=== PATIENT | female | born 1980 | race Caucasian/White ===

== ENCOUNTER 2021-07-13 09:36 | Inpatient (IN) | payer MEDICAID, OTHER ==
[~2021-07-13] VITALS: Ht 160 cm; Wt 56.7 kg
[2021-07-13 10:30] LABS: Hemoglobin 10.8 g/dL (12.2-16.2)
[2021-07-13 10:32] LABS: Hematocrit 32.3 % (36.0-46.0); Mean Corpuscular Hgb Conc. 33.6 g/dL (32.0-36.0); Mean Corpuscular Volume 86.6 fL (80.0-100.0); Red Blood Cells 3.73 10^6/uL (4.0-5.20); Red Cell Distribution Width 17.9 % (11.8-14.3)
[2021-07-13] MEDS ORDERED: ALBUTEROL SULF 2.5 MG/0.5ML(0.5%) NEB SOLN NEB ONE (10:45)
[2021-07-13] MEDS ORDERED: methylPREDNISolone SOD SUCC 125 MG/2 ML VL IV ONE (10:45)
[2021-07-13] MEDS ORDERED: IPRATROPIUM BROM 0.5 MG/2.5ML INH SOL NEB ONE (10:45)
[2021-07-13 10:54] LABS: Albumin 2.4 g/dL (3.4-5.0); Calcium 8.2 mg/dL (8.5-10.1); Magnesium 1.9 mg/dL (1.6-2.6); Potassium 3.4 mmol/L (3.5-5.1)
[2021-07-13 10:55] LABS: INR 1.4 (0.9-1.15); Partial Thromboplastin Time 31.2 sec (23.6-33.0); White Blood Cell 0.2 10^3/uL (4.4-10.8)
[2021-07-13 10:57] LABS: BUN/Creatinine Ratio 14.6; Bilirubin, Total 0.6 mg/dL (0.2-1.0); Total Protein 6.2 g/dL (6.4-8.2)
[2021-07-13 10:58] LABS: Band Neutrophils % (manual) 0; Basophils % (manual) 0 (0.0-2.0); Blast Cells 0; Metamyelocytes % 0; Myelocytes % 0; Promyelocytes % 0; Reactive Lymphocytes 0
[2021-07-13 11:04] VITALS: BP 124/79
[2021-07-13] MEDS ORDERED: IOHEXOL 350 MG/ML 100ML IJ ONE ×2 (11:23→12:49)
[2021-07-13] MEDS: MAGNESIUM SULFATE 1GM/100ML 100 ML IV SCH ×2 (11:53→13:37)
[2021-07-13 12:20] LABS: Eosinophils % (manual) 5 (0-7); Lymphocytes % (manual) 83 (10.0-50.0); Monocytes % (manual) 5 (0-12)
[2021-07-13] MEDS ORDERED: HYDROmorphone HCL 2 MG/ML VL/or syr IV ONE (14:00)
[2021-07-13] MEDS ORDERED: ACETAMINOPHEN 325 MG TAB PO ONE (14:15)
[2021-07-13] MEDS ORDERED: CEFEPIME 1GM/ 50ML 50 ML IV ONE (14:15)
[2021-07-13] MEDS ORDERED: VANCOMYCIN 1GM/250ML 250 ML IV ONE (14:15)
[2021-07-13 15:44] VITALS: BP 124/79
[2021-07-13] MEDS ORDERED: NITROGLYCERIN 0.4 MG SL TAB SL PRN (18:00)
[2021-07-13] MEDS ORDERED: MORPHINE SULFATE INJ 2 MG/ml SYRG IV PRN ×2 (18:00)
[2021-07-13] MEDS ORDERED: ONDANSETRON HCL 4 MG/2 ML VIAL IV PRN (18:00)
[2021-07-13 18:56] VITALS: BP 120/83
[2021-07-13] MEDS: levoFLOXacin 500MG 100 ML IV SCH ×2 (19:01→22:02)
[2021-07-13] MEDS ORDERED: AMINO ACID INFUSION IN D10W 1,000 ML IV NR (20:00)
[2021-07-13] MEDS ORDERED: TPN PER PHARMACY 0 ML IV SCH (20:00)
[2021-07-13] MEDS: POTASSIUM CHL 20MEQ/100ML 100 ML IV SCH ×2 (22:00→23:50)
[2021-07-13] MEDS ORDERED: HYDROmorphone HCL 2 MG/ML VL/or syr IV PRN (23:00)
[2021-07-13] MEDS: methylPREDNISolone SOD SUCC 125 MG/2 ML VL IV SCH (23:39)
[2021-07-14] VITALS (47 sets, daily range): BP systolic 96–131; BP diastolic 58–87
[2021-07-14] MEDS ORDERED: DEXTROSE (50%) 50ML SYRG IV SCH
[2021-07-14] MEDS: HYDROmorphone HCL 2 MG/ML VL/or syr IV PRN ×3 (00:40→13:00)
[2021-07-14] MEDS ORDERED: POTASSIUM CHL 20MEQ/100ML 100 ML IV ONE (04:13)
[2021-07-14 04:36] LABS: Basophils # (auto) 0 10 ^3/uL (0-0.2); Eosinophils # (auto) 0 10 ^3/uL (0-0.8); Hematocrit 27.3 % (36.0-46.0); Lymphocytes # (auto) 0.1 10 ^3/uL (0.4-5.4); Monocytes # (auto) 0 10 ^3/uL (0-1.3); Neutrophils # (auto) 0 10 ^3/uL (1.6-8.6); Red Blood Cells 3.16 10^6/uL (4.0-5.20)
[2021-07-14 04:38] LABS: Eosinophils % (auto) 1.7 % (0.0-7.0); Hemoglobin 9.5 g/dL (12.2-16.2); Mean Corpuscular Hemoglobin 30.2 pg (28.0-32.0); Mean Corpuscular Hgb Conc. 34.9 g/dL (32.0-36.0); Mean Corpuscular Volume 86.4 fL (80.0-100.0); Neutrophils % (auto) 11.1 % (37.0-80.0); Red Cell Distribution Width 17.5 % (11.8-14.3)
[2021-07-14 04:52] LABS: Albumin 1.9 g/dL (3.4-5.0); Calcium 7.9 mg/dL (8.5-10.1); Magnesium 2.2 mg/dL (1.6-2.6); Potassium 3.7 mmol/L (3.5-5.1)
[2021-07-14 04:58] LABS: BUN/Creatinine Ratio 18.6; Bilirubin, Total 0.5 mg/dL (0.2-1.0); Phosphorus 2.5 mg/dL (2.5-4.90); Total Protein 5.6 g/dL (6.4-8.2)
[2021-07-14] MEDS: ACETAMINOPHEN 325 MG TAB PO PRN ×2 (05:07→22:10)
[2021-07-14 05:18] LABS: Lymphocytes % (auto) 65.5 % (10.0-50.0); Monocytes % (auto) 21.7 % (0.0-12.0); Nucleated Red Blood Cells % 9.1 %
[2021-07-14 05:19] LABS: White Blood Cell 0.1 10^3/uL (4.4-10.8)
[2021-07-14] MEDS: InsuLIN REG 1unit/0.01ml Soln (100units/ml) SC SCH ×3 (06:00→13:50)
[2021-07-14] MEDS: methylPREDNISolone SOD SUCC 125 MG/2 ML VL IV SCH ×3 (06:06→22:07)
[2021-07-14] MEDS: ACCU-CHEK COMFORT CURVE STRIP VI SCH ×3 (06:07→13:50)
[2021-07-14] MEDS ORDERED: HYDROmorphone HCL 2 MG/ML VL/or syr IV PRN (15:30)
[2021-07-14] MEDS ORDERED: LIDOCAINE 5% TOPICAL PATCH TOP ONE (16:45)
[2021-07-14] MEDS: LORazepam 2MG/ML-1ML VIAL IV PRN (16:51)
[2021-07-14] MEDS: IPRATROPIUM BROM 0.5 MG/2.5ML INH SOL NEB PRN (18:13)
[2021-07-14] MEDS ORDERED: ROCURONIUM 10MG/ML 10ML VIAL IV ONE ×2 (18:36→22:37)
[2021-07-14] MEDS ORDERED: ETOMIDATE (2MG/ML) 20ML VIAL IV ONE ×2 (18:36→22:37)
[2021-07-14] MEDS ORDERED: SUCCINYLCHOLINE CHLORIDE 20 MG/ML 10ML VIAL IV ONE ×2 (18:37→22:37)
[2021-07-14] MEDS ORDERED: PPN PER PHARMACY IV NR ×11 (20:00)
[2021-07-14] MEDS: NYSTATIN (MOUTH-THROAT) 500,000 UNITS/5 ML SUSP MT SCH (22:06)
[2021-07-14] MEDS: GABAPENTIN 300 MG CAP PO SCH (22:08)
[2021-07-14] MEDS: METOPROLOL TARTRATE 25 MG TAB PO SCH (22:08)
[2021-07-14] MEDS: PROPOFOL 100 ML IV SCH (23:15)
[2021-07-14] MEDS ORDERED: PROPOFOL 100 ML IV ONE (23:19)
[2021-07-14] MEDS: MIDAZOLAM DRIP 50 mg/50mL 50 ML IV SCH (23:45)
[2021-07-15] VITALS (77 sets, daily range): BP systolic 77–127; BP diastolic 43–87
[2021-07-15] MEDS: fentaNYL Drip 2500mCg/250mlNS 250 ML IV SCH ×2 (03:10→14:35)
[2021-07-15 04:04] LABS: Calcium 8.2 mg/dL (8.5-10.1); Magnesium 2.2 mg/dL (1.6-2.6); Potassium 3.8 mmol/L (3.5-5.1)
[2021-07-15 04:11] LABS: Albumin 1.6 g/dL (3.4-5.0); BUN/Creatinine Ratio 26.8; Bilirubin, Total 0.5 mg/dL (0.2-1.0); Phosphorus 2.5 mg/dL (2.5-4.90); Total Protein 5.7 g/dL (6.4-8.2)
[2021-07-15] MEDS: ACCU-CHEK COMFORT CURVE STRIP VI SCH ×4 (06:00→17:17)
[2021-07-15] MEDS: NYSTATIN (MOUTH-THROAT) 500,000 UNITS/5 ML SUSP MT SCH ×4 (06:37→22:19)
[2021-07-15] MEDS: methylPREDNISolone SOD SUCC 125 MG/2 ML VL IV SCH ×3 (06:37→22:19)
[2021-07-15] MEDS: InsuLIN REG 1unit/0.01ml Soln (100units/ml) SC SCH ×4 (06:51→17:16)
[2021-07-15] MEDS: ACETAMINOPHEN 325 MG TAB PO PRN (07:40)
[2021-07-15] MEDS ORDERED: VANCOMYCIN PER PHARMACY 0 MG IV SCH (08:00)
[2021-07-15] MEDS ORDERED: MEROPENEM 500MG IVPB 50 ML IV SCH (08:00)
[2021-07-15] MEDS: MEROPENEM 1GM IVPB 100 ML IV SCH ×2 (08:14→15:59)
[2021-07-15] MEDS: VANCOMYCIN 1GM/250ML 250 ML IV SCH ×2 (09:28→22:19)
[2021-07-15] MEDS: GABAPENTIN 300 MG CAP PO SCH ×2 (09:29→22:21)
[2021-07-15] MEDS: NOREPINEPHRINE 8 MG/250ML KIT 250 ML IV SCH (09:29)
[2021-07-15] MEDS: LIDOCAINE 5% TOPICAL PATCH TOP SCH (09:30)
[2021-07-15] MEDS: METOPROLOL TARTRATE 25 MG TAB PO SCH ×2 (09:32→22:20)
[2021-07-15] MEDS: levoFLOXacin 500MG 100 ML IV SCH (10:43)
[2021-07-15 10:55] LABS: Lymphocytes # (auto) 0.1 10 ^3/uL (0.4-5.4); Lymphocytes % (auto) 50.5 % (10.0-50.0); Monocytes # (auto) 0 10 ^3/uL (0-1.3); Neutrophils # (auto) 0.1 10 ^3/uL (1.6-8.6); Neutrophils % (auto) 46.5 % (37.0-80.0); Nucleated Red Blood Cells % 1.6 %
[2021-07-15 10:57] LABS: Hemoglobin 7.9 g/dL (12.2-16.2); Red Blood Cells 2.66 10^6/uL (4.0-5.20); White Blood Cell 0.2 10^3/uL (4.4-10.8)
[2021-07-15 10:58] LABS: Hematocrit 23.3 % (36.0-46.0); Mean Corpuscular Hemoglobin 29.5 pg (28.0-32.0); Mean Corpuscular Hgb Conc. 33.8 g/dL (32.0-36.0); Mean Corpuscular Volume 87.4 fL (80.0-100.0); Red Cell Distribution Width 17.7 % (11.8-14.3)
[2021-07-15 11:32] LABS: % Iron Saturation 19.4 % (15-50)
[2021-07-15 11:41] LABS: Ferritin 1445.8 ng/mL (10-322)
[2021-07-15] MEDS: PROPOFOL 100 ML IV SCH ×2 (12:30→18:23)
[2021-07-15] MEDS ORDERED: TPN PER PHARMACY IV NR ×11 (20:00)
[2021-07-16] VITALS (104 sets, daily range): BP systolic 88–134; BP diastolic 55–92
[2021-07-16] MEDS: PROPOFOL 100 ML IV SCH ×4 (00:52→18:25)
[2021-07-16] MEDS: MEROPENEM 1GM IVPB 100 ML IV SCH ×3 (00:52→16:45)
[2021-07-16] MEDS: NOREPINEPHRINE 8 MG/250ML KIT 250 ML IV SCH (00:52)
[2021-07-16] MEDS: ACCU-CHEK COMFORT CURVE STRIP VI SCH ×4 (00:53→17:16)
[2021-07-16] MEDS: InsuLIN REG 1unit/0.01ml Soln (100units/ml) SC SCH ×4 (00:56→17:21)
[2021-07-16] MEDS: fentaNYL Drip 2500mCg/250mlNS 250 ML IV SCH ×2 (02:30→16:41)
[2021-07-16 04:02] LABS: Urine Bacteria NONE SEEN /hpf (None Seen); Urine Blood Negative /uL (Negative); Urine WBC 3 /hpf (0 - 5)
[2021-07-16 04:04] LABS: Basophils # (auto) 0 10 ^3/uL (0-0.2); Eosinophils # (auto) 0 10 ^3/uL (0-0.8); Hemoglobin 8.2 g/dL (12.2-16.2); Lymphocytes # (auto) 0.2 10 ^3/uL (0.4-5.4); Monocytes # (auto) 0 10 ^3/uL (0-1.3); Neutrophils # (auto) 0.3 10 ^3/uL (1.6-8.6)
[2021-07-16 04:08] LABS: Basophils % (auto) 0.4 % (0.0-2.0); Eosinophils % (auto) 0.5 % (0.0-7.0); Hematocrit 24.1 % (36.0-46.0); Lymphocytes % (auto) 36.2 % (10.0-50.0); Mean Corpuscular Hemoglobin 30.1 pg (28.0-32.0); Mean Corpuscular Hgb Conc. 34.2 g/dL (32.0-36.0); Mean Corpuscular Volume 87.9 fL (80.0-100.0); Monocytes % (auto) 6.1 % (0.0-12.0); Neutrophils % (auto) 56.8 % (37.0-80.0); Red Blood Cells 2.74 10^6/uL (4.0-5.20)
[2021-07-16 04:44] LABS: Albumin 1.3 g/dL (3.4-5.0); Calcium 9.5 mg/dL (8.5-10.1); Magnesium 2.4 mg/dL (1.6-2.6); Potassium 3.3 mmol/L (3.5-5.1)
[2021-07-16 04:46] LABS: BUN/Creatinine Ratio 34.8
[2021-07-16 04:48] LABS: Bilirubin, Total 0.4 mg/dL (0.2-1.0); Phosphorus 2.4 mg/dL (2.5-4.90); Total Protein 5.3 g/dL (6.4-8.2)
[2021-07-16 04:54] LABS: Nucleated Red Blood Cells % 16.2 %; White Blood Cell 0.5 10^3/uL (4.4-10.8)
[2021-07-16] MEDS: methylPREDNISolone SOD SUCC 125 MG/2 ML VL IV SCH ×2 (06:03→14:07)
[2021-07-16] MEDS: NYSTATIN (MOUTH-THROAT) 500,000 UNITS/5 ML SUSP MT SCH ×3 (06:03→17:15)
[2021-07-16] MEDS: LIDOCAINE 5% TOPICAL PATCH TOP SCH (10:00)
[2021-07-16] MEDS ORDERED: PANTOPRAZOLE 40 MG/10 ML VIAL INJ IV SCH (10:00)
[2021-07-16] MEDS ORDERED: POTASSIUM PHOSPHATE 44 MEQ in D5W 5% 250 ML IV ONE (10:00)
[2021-07-16] MEDS: METOPROLOL TARTRATE 25 MG TAB PO SCH ×2 (10:00→22:00)
[2021-07-16 10:21] LABS: Folate (Folic Acid) 15.72 ng/mL (5.38-24)
[2021-07-16] MEDS: GABAPENTIN 300 MG CAP PO SCH (10:33)
[2021-07-16] MEDS: VANCOMYCIN 1GM/250ML 250 ML IV SCH (10:36)
[2021-07-16] MEDS: MIDAZOLAM DRIP 50 mg/50mL 50 ML IV SCH (10:55)
[2021-07-16] MEDS: FILGRASTIM(TBO) 480 MCG/0.8 ML SYRG SC SCH (11:28)
[2021-07-16] MEDS: ACETAMINOPHEN 325 MG TAB PO PRN (14:09)
[2021-07-16] MEDS ORDERED: SODIUM PHOSPHATES IV NR ×12 (20:00)
[2021-07-16] MEDS ORDERED: POTASSIUM CHLORIDE IV NR ×12 (20:00)
[2021-07-16] MEDS ORDERED: [UNRECOGNIZED DRUG - OTHER] IV NR ×12 (20:00)
[2021-07-16] MEDS ORDERED: SODIUM CHLORIDE IV NR ×12 (20:00)
[2021-07-17] VITALS (100 sets, daily range): BP systolic 87–120; BP diastolic 51–74
[2021-07-17] MEDS: NYSTATIN (MOUTH-THROAT) 500,000 UNITS/5 ML SUSP MT SCH ×5 (00:10→22:00)
[2021-07-17] MEDS: MEROPENEM 1GM IVPB 100 ML IV SCH ×3 (00:10→17:44)
[2021-07-17] MEDS: methylPREDNISolone SOD SUCC 125 MG/2 ML VL IV SCH ×4 (00:11→22:08)
[2021-07-17] MEDS: GABAPENTIN 300 MG CAP PO SCH ×3 (00:11→22:09)
[2021-07-17] MEDS: ACCU-CHEK COMFORT CURVE STRIP VI SCH ×4 (00:12→17:53)
[2021-07-17] MEDS: InsuLIN REG 1unit/0.01ml Soln (100units/ml) SC SCH ×4 (00:27→17:53)
[2021-07-17 04:32] LABS: Basophils # (auto) 0 10 ^3/uL (0-0.2); Eosinophils # (auto) 0 10 ^3/uL (0-0.8); Monocytes # (auto) 0 10 ^3/uL (0-1.3)
[2021-07-17 04:47] LABS: Albumin 1.1 g/dL (3.4-5.0); Calcium 9.1 mg/dL (8.5-10.1); Magnesium 2.4 mg/dL (1.6-2.6); Potassium 3.8 mmol/L (3.5-5.1)
[2021-07-17 04:52] LABS: BUN/Creatinine Ratio 67.9; Bilirubin, Total 0.3 mg/dL (0.2-1.0); Phosphorus 5.2 mg/dL (2.5-4.90)
[2021-07-17 04:56] LABS: Basophils % (auto) 0.2 % (0.0-2.0); Eosinophils % (auto) 0.1 % (0.0-7.0); Hematocrit 21.1 % (36.0-46.0); Hemoglobin 7.5 g/dL (12.2-16.2); Lymphocytes # (auto) 0.3 10 ^3/uL (0.4-5.4); Lymphocytes % (auto) 28.6 % (10.0-50.0); Mean Corpuscular Hemoglobin 30.7 pg (28.0-32.0); Mean Corpuscular Hgb Conc. 35.6 g/dL (32.0-36.0); Mean Corpuscular Volume 86.2 fL (80.0-100.0); Monocytes % (auto) 1.6 % (0.0-12.0); Neutrophils # (auto) 0.7 10 ^3/uL (1.6-8.6); Neutrophils % (auto) 69.5 % (37.0-80.0); Red Blood Cells 2.45 10^6/uL (4.0-5.20); Red Cell Distribution Width 18.9 % (11.8-14.3)
[2021-07-17 06:25] LABS: Nucleated Red Blood Cells % 4.6 %
[2021-07-17 06:30] LABS: White Blood Cell 0.9 10^3/uL (4.4-10.8)
[2021-07-17] MEDS: PANTOPRAZOLE 40 MG/10 ML VIAL INJ IV SCH ×2 (09:58→22:08)
[2021-07-17] MEDS: METOPROLOL TARTRATE 25 MG TAB PO SCH ×2 (10:00→22:00)
[2021-07-17] MEDS ORDERED: MICAFUNGIN SODIUM 100 MG in SODIUM CHL 0.9% 100 ML IV SCH (10:00)
[2021-07-17] MEDS: FILGRASTIM(TBO) 480 MCG/0.8 ML SYRG SC SCH (10:20)
[2021-07-17 11:32] LABS: Hemoglobin 7.4 g/dL (12.2-16.2); Red Blood Cells 2.48 10^6/uL (4.0-5.20); Red Cell Distribution Width 19.1 % (11.8-14.3)
[2021-07-17 11:34] LABS: Hematocrit 21.5 % (36.0-46.0); Mean Corpuscular Hemoglobin 29.9 pg (28.0-32.0); Mean Corpuscular Hgb Conc. 34.5 g/dL (32.0-36.0); Mean Corpuscular Volume 86.6 fL (80.0-100.0)
[2021-07-17] MEDS: PROPOFOL 100 ML IV SCH ×2 (11:44→18:44)
[2021-07-17 11:46] LABS: INR 1.02 (0.9-1.15)
[2021-07-17 12:12] LABS: Basophils % (manual) 0 (0.0-2.0); Blast Cells 0; Eosinophils % (manual) 0 (0-7); Promyelocytes % 0; Reactive Lymphocytes 0; White Blood Cell 1.2 10^3/uL (4.4-10.8)
[2021-07-17 12:32] LABS: Band Neutrophils % (manual) 23; Lymphocytes % (manual) 43 (10.0-50.0); Metamyelocytes % 7; Monocytes % (manual) 5 (0-12); Myelocytes % 12
[2021-07-17] MEDS ORDERED: MAGIC MOUTHWASH 55 ML SUSP MT ONE (12:45)
[2021-07-17] MEDS: fentaNYL Drip 2500mCg/250mlNS 250 ML IV SCH (17:01)
[2021-07-17] MEDS: NOREPINEPHRINE 8 MG/250ML KIT 250 ML IV SCH (19:00)
[2021-07-17] MEDS ORDERED: TPN PER PHARMACY IV NR ×9 (20:00)
[2021-07-17] MEDS: MIDAZOLAM DRIP 50 mg/50mL 50 ML IV SCH (23:45)
[2021-07-18] VITALS (101 sets, daily range): BP systolic 103–175; BP diastolic 53–118
[2021-07-18] MEDS: ACCU-CHEK COMFORT CURVE STRIP VI SCH ×5 (01:18→23:50)
[2021-07-18] MEDS: InsuLIN REG 1unit/0.01ml Soln (100units/ml) SC SCH ×5 (01:24→23:44)
[2021-07-18] MEDS: MEROPENEM 1GM IVPB 100 ML IV SCH ×3 (01:25→16:34)
[2021-07-18] MEDS: NYSTATIN (MOUTH-THROAT) 500,000 UNITS/5 ML SUSP MT SCH ×4 (06:00→22:01)
[2021-07-18] MEDS: methylPREDNISolone SOD SUCC 125 MG/2 ML VL IV SCH ×3 (06:24→22:01)
[2021-07-18 06:31] LABS: Hematocrit 21.2 % (36.0-46.0); Hemoglobin 7.3 g/dL (12.2-16.2); Mean Corpuscular Hgb Conc. 34.6 g/dL (32.0-36.0); Mean Corpuscular Volume 86.8 fL (80.0-100.0); Red Blood Cells 2.44 10^6/uL (4.0-5.20); Red Cell Distribution Width 18.9 % (11.8-14.3); White Blood Cell 3.8 10^3/uL (4.4-10.8)
[2021-07-18 06:50] LABS: Potassium 4.2 mmol/L (3.5-5.1)
[2021-07-18 06:54] LABS: Basophils % (manual) 0 (0.0-2.0); Blast Cells 0; Eosinophils % (manual) 0 (0-7); Myelocytes % 0; Promyelocytes % 0; Reactive Lymphocytes 0
[2021-07-18 06:59] LABS: Albumin 1.1 g/dL (3.4-5.0); BUN/Creatinine Ratio 80.4; Bilirubin, Total 0.3 mg/dL (0.2-1.0); Calcium 9.7 mg/dL (8.5-10.1); Magnesium 2.5 mg/dL (1.6-2.6); Phosphorus 3.8 mg/dL (2.5-4.90); Total Protein 4.9 g/dL (6.4-8.2)
[2021-07-18] MEDS: NOREPINEPHRINE 8 MG/250ML KIT 250 ML IV SCH (09:15)
[2021-07-18 09:57] LABS: Band Neutrophils % (manual) 8; Lymphocytes % (manual) 27 (10.0-50.0); Metamyelocytes % 9; Monocytes % (manual) 17 (0-12)
[2021-07-18] MEDS: PANTOPRAZOLE 40 MG/10 ML VIAL INJ IV SCH ×2 (09:59→22:01)
[2021-07-18] MEDS ORDERED: FILGRASTIM (TBO) 300 MCG/0.5 ML SYRG SC SCH (10:00)
[2021-07-18] MEDS: GABAPENTIN 300 MG CAP PO SCH ×2 (10:00→22:01)
[2021-07-18] MEDS: METOPROLOL TARTRATE 25 MG TAB PO SCH ×2 (10:00→22:00)
[2021-07-18] MEDS: PROPOFOL 100 ML IV SCH ×2 (15:24→21:17)
[2021-07-18] MEDS: fentaNYL Drip 2500mCg/250mlNS 250 ML IV SCH (18:33)
[2021-07-18] MEDS ORDERED: TPN PER PHARMACY IV NR ×18 (20:00)
[2021-07-19] VITALS (105 sets, daily range): BP systolic 104–186; BP diastolic 52–119
[2021-07-19] MEDS: MEROPENEM 1GM IVPB 100 ML IV SCH ×2 (01:02→08:53)
[2021-07-19] MEDS: PROPOFOL 100 ML IV SCH (03:43)
[2021-07-19 04:52] LABS: Hematocrit 23.5 % (36.0-46.0); Mean Corpuscular Hemoglobin 30.1 pg (28.0-32.0)
[2021-07-19 04:59] LABS: Mean Corpuscular Hgb Conc. 34.3 g/dL (32.0-36.0); Mean Corpuscular Volume 87.8 fL (80.0-100.0); Red Blood Cells 2.68 10^6/uL (4.0-5.20); Red Cell Distribution Width 19.7 % (11.8-14.3); White Blood Cell 10.3 10^3/uL (4.4-10.8)
[2021-07-19 05:02] LABS: Basophils % (manual) 0 (0.0-2.0); Blast Cells 0; Eosinophils % (manual) 0 (0-7); Promyelocytes % 0; Reactive Lymphocytes 0
[2021-07-19 05:03] LABS: Albumin 1.2 g/dL (3.4-5.0); Calcium 10.5 mg/dL (8.5-10.1); Magnesium 2.2 mg/dL (1.6-2.6); Potassium 4.7 mmol/L (3.5-5.1)
[2021-07-19 05:05] LABS: Bilirubin, Total 0.4 mg/dL (0.2-1.0); Phosphorus 3.8 mg/dL (2.5-4.90)
[2021-07-19] MEDS: methylPREDNISolone SOD SUCC 125 MG/2 ML VL IV SCH ×3 (05:58→22:12)
[2021-07-19] MEDS: NYSTATIN (MOUTH-THROAT) 500,000 UNITS/5 ML SUSP MT SCH ×4 (06:00→22:13)
[2021-07-19] MEDS: InsuLIN REG 1unit/0.01ml Soln (100units/ml) SC SCH ×4 (06:28→23:46)
[2021-07-19] MEDS: ACCU-CHEK COMFORT CURVE STRIP VI SCH ×4 (06:29→23:45)
[2021-07-19 07:11] LABS: Band Neutrophils % (manual) 67; Lymphocytes % (manual) 7 (10.0-50.0); Metamyelocytes % 10; Monocytes % (manual) 4 (0-12); Myelocytes % 3
[2021-07-19] MEDS: GABAPENTIN 300 MG CAP PO SCH ×2 (10:00→22:12)
[2021-07-19] MEDS: PANTOPRAZOLE 40 MG/10 ML VIAL INJ IV SCH ×2 (10:00→22:12)
[2021-07-19] MEDS: METOPROLOL TARTRATE 25 MG TAB PO SCH ×2 (10:00→22:13)
[2021-07-19] MEDS: FUROSEMIDE 40 MG/4 ML VIAL IV SCH (10:01)
[2021-07-19] MEDS: MIDAZOLAM DRIP 50 mg/50mL 50 ML IV SCH (19:00)
[2021-07-19] MEDS: fentaNYL Drip 2500mCg/250mlNS 250 ML IV SCH (19:30)
[2021-07-19] MEDS: TPN PER PHARMACY IV NR ×9 (20:15)
[2021-07-20] VITALS (99 sets, daily range): BP systolic 87–129; BP diastolic 40–63
[2021-07-20] MEDS: PROPOFOL 100 ML IV SCH ×3 (02:35→19:43)
[2021-07-20 04:33] LABS: Hemoglobin 8.6 g/dL (12.2-16.2)
[2021-07-20 04:37] LABS: Hematocrit 24.9 % (36.0-46.0); Mean Corpuscular Hemoglobin 30.2 pg (28.0-32.0); Mean Corpuscular Hgb Conc. 34.5 g/dL (32.0-36.0); Mean Corpuscular Volume 87.5 fL (80.0-100.0); Red Blood Cells 2.84 10^6/uL (4.0-5.20); Red Cell Distribution Width 19.5 % (11.8-14.3); White Blood Cell 20.6 10^3/uL (4.4-10.8)
[2021-07-20 04:46] LABS: Basophils % (manual) 0 (0.0-2.0); Blast Cells 0; Eosinophils % (manual) 0 (0-7); Myelocytes % 0; Promyelocytes % 0; Reactive Lymphocytes 0
[2021-07-20 04:48] LABS: Albumin 1.2 g/dL (3.4-5.0); Calcium 9.9 mg/dL (8.5-10.1); Magnesium 2.7 mg/dL (1.6-2.6); Potassium 4.2 mmol/L (3.5-5.1)
[2021-07-20 04:52] LABS: BUN/Creatinine Ratio 121.4; Bilirubin, Total 0.5 mg/dL (0.2-1.0); Total Protein 4.9 g/dL (6.4-8.2)
[2021-07-20] MEDS: ACCU-CHEK COMFORT CURVE STRIP VI SCH ×3 (06:23→18:00)
[2021-07-20] MEDS: InsuLIN REG 1unit/0.01ml Soln (100units/ml) SC SCH ×3 (06:26→18:42)
[2021-07-20] MEDS: NYSTATIN (MOUTH-THROAT) 500,000 UNITS/5 ML SUSP MT SCH ×3 (06:26→18:48)
[2021-07-20] MEDS: methylPREDNISolone SOD SUCC 125 MG/2 ML VL IV SCH ×3 (06:26→21:54)
[2021-07-20 08:01] LABS: Band Neutrophils % (manual) 53; Lymphocytes % (manual) 3 (10.0-50.0); Metamyelocytes % 14; Monocytes % (manual) 5 (0-12)
[2021-07-20] MEDS: PANTOPRAZOLE 40 MG/10 ML VIAL INJ IV SCH ×2 (09:49→21:54)
[2021-07-20] MEDS: GABAPENTIN 300 MG CAP PO SCH ×2 (09:50→21:55)
[2021-07-20] MEDS: METOPROLOL TARTRATE 25 MG TAB PO SCH ×2 (09:50→21:55)
[2021-07-20] MEDS: FUROSEMIDE 40 MG/4 ML VIAL IV SCH (09:50)
[2021-07-20 10:23] LABS: Hemoglobin 8.3 g/dL (12.2-16.2)
[2021-07-20 10:25] LABS: Hematocrit 24.5 % (36.0-46.0)
[2021-07-20] MEDS: fentaNYL Drip 2500mCg/250mlNS 250 ML IV SCH (11:34)
[2021-07-20] MEDS: TPN PER PHARMACY IV NR ×9 (19:56)
[2021-07-20] MEDS ORDERED: TPN PER PHARMACY IV NR ×9 (20:00)
[2021-07-21] VITALS (104 sets, daily range): BP systolic 75–147; BP diastolic 34–82
[2021-07-21] MEDS: InsuLIN REG 1unit/0.01ml Soln (100units/ml) SC SCH ×4 (00:25→17:48)
[2021-07-21] MEDS: NYSTATIN (MOUTH-THROAT) 500,000 UNITS/5 ML SUSP MT SCH ×5 (00:25→21:07)
[2021-07-21] MEDS: ACCU-CHEK COMFORT CURVE STRIP VI SCH ×4 (00:28→17:47)
[2021-07-21 05:13] LABS: Albumin 1.2 g/dL (3.4-5.0); BUN/Creatinine Ratio 115.6; Bilirubin, Total 0.6 mg/dL (0.2-1.0); Calcium 9.4 mg/dL (8.5-10.1); Magnesium 2.4 mg/dL (1.6-2.6); Phosphorus 4.3 mg/dL (2.5-4.90); Total Protein 4.8 g/dL (6.4-8.2)
[2021-07-21 05:17] LABS: Potassium 4.9 mmol/L (3.5-5.1)
[2021-07-21 05:55] LABS: Hematocrit 28.6 % (36.0-46.0); Hemoglobin 9.6 g/dL (12.2-16.2); Mean Corpuscular Hemoglobin 29.5 pg (28.0-32.0); Mean Corpuscular Hgb Conc. 33.6 g/dL (32.0-36.0); Mean Corpuscular Volume 87.8 fL (80.0-100.0); Red Blood Cells 3.26 10^6/uL (4.0-5.20); White Blood Cell 28.7 10^3/uL (4.4-10.8)
[2021-07-21] MEDS: methylPREDNISolone SOD SUCC 125 MG/2 ML VL IV SCH ×3 (06:20→21:08)
[2021-07-21 07:13] LABS: Band Neutrophils % (manual) 69; Basophils % (manual) 0 (0.0-2.0); Blast Cells 0; Eosinophils % (manual) 0 (0-7); Lymphocytes % (manual) 3 (10.0-50.0); Metamyelocytes % 15; Monocytes % (manual) 4 (0-12); Myelocytes % 2; Promyelocytes % 0; Reactive Lymphocytes 0
[2021-07-21] MEDS: FUROSEMIDE 40 MG/4 ML VIAL IV SCH (09:40)
[2021-07-21] MEDS: PANTOPRAZOLE 40 MG/10 ML VIAL INJ IV SCH ×2 (09:40→21:07)
[2021-07-21] MEDS: GABAPENTIN 300 MG CAP PO SCH ×2 (09:41→21:08)
[2021-07-21] MEDS: METOPROLOL TARTRATE 25 MG TAB PO SCH ×2 (09:41→21:15)
[2021-07-21] MEDS: MIDAZOLAM DRIP 50 mg/50mL 50 ML IV SCH (11:20)
[2021-07-21] MEDS: ACETAMINOPHEN 325 MG TAB PO PRN (13:46)
[2021-07-21] MEDS: NOREPINEPHRINE 8 MG/250ML KIT 250 ML IV SCH (14:58)
[2021-07-21] MEDS: fentaNYL Drip 2500mCg/250mlNS 250 ML IV SCH (18:19)
[2021-07-21] MEDS ORDERED: TPN PER PHARMACY IV NR ×8 (20:00)
[2021-07-22] VITALS (97 sets, daily range): BP systolic 80–138; BP diastolic 38–81
[2021-07-22] MEDS: ACCU-CHEK COMFORT CURVE STRIP VI SCH ×5 (00:10→23:41)
[2021-07-22] MEDS: InsuLIN REG 1unit/0.01ml Soln (100units/ml) SC SCH ×5 (00:12→23:46)
[2021-07-22 04:53] LABS: Albumin 1.4 g/dL (3.4-5.0); Calcium 9.2 mg/dL (8.5-10.1); Magnesium 2.4 mg/dL (1.6-2.6)
[2021-07-22 04:55] LABS: BUN/Creatinine Ratio 113.2
[2021-07-22 04:58] LABS: Bilirubin, Total 0.4 mg/dL (0.2-1.0); Phosphorus 2.8 mg/dL (2.5-4.90)
[2021-07-22] MEDS: NYSTATIN (MOUTH-THROAT) 500,000 UNITS/5 ML SUSP MT SCH ×4 (05:49→22:12)
[2021-07-22] MEDS: methylPREDNISolone SOD SUCC 125 MG/2 ML VL IV SCH ×3 (05:50→22:10)
[2021-07-22] MEDS: IPRATROPIUM BROM 0.5 MG/2.5ML INH SOL NEB PRN (08:11)
[2021-07-22] MEDS: PANTOPRAZOLE 40 MG/10 ML VIAL INJ IV SCH ×2 (09:47→22:09)
[2021-07-22] MEDS: GABAPENTIN 300 MG CAP PO SCH ×2 (09:48→22:12)
[2021-07-22] MEDS: FUROSEMIDE 40 MG/4 ML VIAL IV SCH (09:48)
[2021-07-22] MEDS: fentaNYL Drip 2500mCg/250mlNS 250 ML IV SCH ×2 (09:50→23:48)
[2021-07-22] MEDS: METOPROLOL TARTRATE 25 MG TAB PO SCH ×2 (10:00→22:00)
[2021-07-22 10:18] LABS: Hematocrit 30.2 % (36.0-46.0); Hemoglobin 10.1 g/dL (12.2-16.2); Mean Corpuscular Hemoglobin 29.4 pg (28.0-32.0); Mean Corpuscular Hgb Conc. 33.3 g/dL (32.0-36.0); Mean Corpuscular Volume 88.4 fL (80.0-100.0); Red Blood Cells 3.42 10^6/uL (4.0-5.20); Red Cell Distribution Width 20.2 % (11.8-14.3); White Blood Cell 23.6 10^3/uL (4.4-10.8)
[2021-07-22 10:23] LABS: Basophils % (manual) 0 (0.0-2.0); Blast Cells 0; Eosinophils % (manual) 0 (0-7); Promyelocytes % 0; Reactive Lymphocytes 0
[2021-07-22 10:52] LABS: Band Neutrophils % (manual) 62; Lymphocytes % (manual) 6 (10.0-50.0); Metamyelocytes % 14; Monocytes % (manual) 3 (0-12); Myelocytes % 1
[2021-07-22] MEDS ORDERED: TPN PER PHARMACY IV NR ×10 (20:00)
[2021-07-22] MEDS: ACETAMINOPHEN 325 MG TAB PO PRN (22:32)
[2021-07-22] MEDS: PROPOFOL 100 ML IV SCH (23:15)
[2021-07-22] MEDS: MIDAZOLAM DRIP 50 mg/50mL 50 ML IV SCH (23:45)
[2021-07-23] VITALS (90 sets, daily range): BP systolic 87–150; BP diastolic 40–105
[2021-07-23 04:30] LABS: Red Cell Distribution Width 19.5 % (11.8-14.3)
[2021-07-23 04:32] LABS: Hematocrit 25.6 % (36.0-46.0); Mean Corpuscular Hemoglobin 30.5 pg (28.0-32.0); Mean Corpuscular Volume 87.2 fL (80.0-100.0); Red Blood Cells 2.94 10^6/uL (4.0-5.20); White Blood Cell 13.5 10^3/uL (4.4-10.8)
[2021-07-23 04:40] LABS: Basophils % (manual) 0 (0.0-2.0); Blast Cells 0; Eosinophils % (manual) 0 (0-7); Promyelocytes % 0; Reactive Lymphocytes 0
[2021-07-23 04:47] LABS: Albumin 1.2 g/dL (3.4-5.0); Magnesium 2.5 mg/dL (1.6-2.6); Potassium 4.1 mmol/L (3.5-5.1)
[2021-07-23 04:52] LABS: BUN/Creatinine Ratio 97.7; Bilirubin, Total 0.6 mg/dL (0.2-1.0); Phosphorus 3.4 mg/dL (2.5-4.90); Total Protein 4.1 g/dL (6.4-8.2)
[2021-07-23] MEDS: methylPREDNISolone SOD SUCC 125 MG/2 ML VL IV SCH ×3 (05:46→22:28)
[2021-07-23] MEDS: NYSTATIN (MOUTH-THROAT) 500,000 UNITS/5 ML SUSP MT SCH ×4 (05:46→22:00)
[2021-07-23] MEDS: ACCU-CHEK COMFORT CURVE STRIP VI SCH ×3 (05:47→18:25)
[2021-07-23] MEDS: InsuLIN REG 1unit/0.01ml Soln (100units/ml) SC SCH ×3 (05:53→18:27)
[2021-07-23 07:03] LABS: Band Neutrophils % (manual) 41; Lymphocytes % (manual) 12 (10.0-50.0); Monocytes % (manual) 1 (0-12); Myelocytes % 5
[2021-07-23 07:04] LABS: Metamyelocytes % 10
[2021-07-23] MEDS: HYDROcodone-ACET 5/325MG TAB PO PRN ×2 (09:59→23:02)
[2021-07-23] MEDS: PANTOPRAZOLE 40 MG/10 ML VIAL INJ IV SCH ×2 (09:59→22:27)
[2021-07-23] MEDS: FUROSEMIDE 40 MG/4 ML VIAL IV SCH (09:59)
[2021-07-23] MEDS: GABAPENTIN 300 MG CAP PO SCH ×2 (10:00→22:31)
[2021-07-23] MEDS: METOPROLOL TARTRATE 25 MG TAB PO SCH ×2 (14:37→22:29)
[2021-07-23] MEDS: LORazepam 2MG/ML-1ML VIAL IV PRN (14:37)
[2021-07-23] MEDS ORDERED: MORPHINE SULFATE INJ 2 MG/ml SYRG ONE (14:52)
[2021-07-23] MEDS ORDERED: MORPHINE SULFATE INJ 2 MG/ml SYRG IV PRN ×2 (15:00→16:15)
[2021-07-23] MEDS: MORPHINE SULFATE INJ 2 MG/ml SYRG IV PRN ×4 (18:03→23:50)
[2021-07-23] MEDS: IPRATROPIUM BROM 0.5 MG/2.5ML INH SOL NEB PRN (18:22)
[2021-07-23] MEDS ORDERED: TPN PER PHARMACY IV NR ×10 (20:00)
[2021-07-24] VITALS (63 sets, daily range): BP systolic 90–143; BP diastolic 46–93
[2021-07-24] MEDS: LORazepam 2MG/ML-1ML VIAL IV PRN ×3 (00:14→21:58)
[2021-07-24] MEDS: MORPHINE SULFATE INJ 2 MG/ml SYRG IV PRN (02:20)
[2021-07-24] MEDS: InsuLIN REG 1unit/0.01ml Soln (100units/ml) SC SCH ×4 (06:00→17:30)
[2021-07-24] MEDS: ACCU-CHEK COMFORT CURVE STRIP VI SCH ×4 (06:00→17:41)
[2021-07-24] MEDS: methylPREDNISolone SOD SUCC 125 MG/2 ML VL IV SCH ×3 (06:00→21:58)
[2021-07-24] MEDS: NYSTATIN (MOUTH-THROAT) 500,000 UNITS/5 ML SUSP MT SCH ×4 (06:00→22:01)
[2021-07-24 09:14] LABS: Albumin 1.4 g/dL (3.4-5.0); Magnesium 2.8 mg/dL (1.6-2.6); Potassium 4.2 mmol/L (3.5-5.1)
[2021-07-24 09:20] LABS: BUN/Creatinine Ratio 61.1; Phosphorus 2.2 mg/dL (2.5-4.90); Total Protein 4.8 g/dL (6.4-8.2)
[2021-07-24] MEDS: PANTOPRAZOLE 40 MG/10 ML VIAL INJ IV SCH ×2 (09:48→21:58)
[2021-07-24] MEDS: METOPROLOL TARTRATE 25 MG TAB PO SCH ×2 (09:49→22:00)
[2021-07-24] MEDS: GABAPENTIN 300 MG CAP PO SCH ×2 (09:49→22:00)
[2021-07-24] MEDS: FUROSEMIDE 40 MG/4 ML VIAL IV SCH (09:49)
[2021-07-24] MEDS: HYDROmorphone HCL 2 MG/ML VL/or syr IV PRN ×5 (10:21→22:44)
[2021-07-24] MEDS ORDERED: SODIUM PHOSP 40 MEQ in D5W 5% 250 ML IV ONE (11:00)
[2021-07-24] MEDS ORDERED: ACETAMINOPHEN IV 1000 MG/100ML (10MG/ML) IV ONE (14:00)
[2021-07-24] MEDS ORDERED: ACETAMINOPHEN IV 1000 MG/100ML (10MG/ML) IV PRN (17:45)
[2021-07-24] MEDS: IPRATROPIUM BROM 0.5 MG/2.5ML INH SOL NEB PRN (18:45)
[2021-07-24] MEDS ORDERED: TPN PER PHARMACY IV NR ×10 (20:00)
[2021-07-24] MEDS: NOREPINEPHRINE 8 MG/250ML KIT 250 ML IV SCH (21:59)
[2021-07-24] MEDS: fentaNYL Drip 2500mCg/250mlNS 250 ML IV SCH (22:00)
[2021-07-24] MEDS: PROPOFOL 100 ML IV SCH (22:00)
[2021-07-25] VITALS (31 sets, daily range): BP systolic 75–158; BP diastolic 30–98
[2021-07-25] MEDS: ACCU-CHEK COMFORT CURVE STRIP VI SCH ×2 (00:09→06:00)
[2021-07-25] MEDS: InsuLIN REG 1unit/0.01ml Soln (100units/ml) SC SCH ×2 (00:10→06:00)
[2021-07-25] MEDS: HYDROmorphone HCL 2 MG/ML VL/or syr IV PRN ×4 (01:16→06:59)
[2021-07-25] MEDS: LORazepam 2MG/ML-1ML VIAL IV PRN (03:32)
[2021-07-25 04:39] LABS: Albumin 1.3 g/dL (3.4-5.0); BUN/Creatinine Ratio 64.8; Calcium 7.7 mg/dL (8.5-10.1); Magnesium 2.4 mg/dL (1.6-2.6)
[2021-07-25 04:42] LABS: Bilirubin, Total 1.4 mg/dL (0.2-1.0); Phosphorus 3.7 mg/dL (2.5-4.90); Total Protein 4.7 g/dL (6.4-8.2)
[2021-07-25] MEDS: methylPREDNISolone SOD SUCC 125 MG/2 ML VL IV SCH (06:00)
[2021-07-25] MEDS: NYSTATIN (MOUTH-THROAT) 500,000 UNITS/5 ML SUSP MT SCH (06:00)
[2021-07-25] MEDS ORDERED: HYDROmorphone HCL 2 MG/ML VL/or syr IV PRN ×2 (07:30→09:00)
[2021-07-25] MEDS ORDERED: LORazepam 2MG/ML-1ML VIAL IV PRN (07:30)
[2021-07-25] MEDS: PROPOFOL 100 ML IV SCH (07:44)
[2021-07-25] MEDS: MIDAZOLAM DRIP 50 mg/50mL 50 ML IV SCH (07:44)
[2021-07-25] MEDS: NOREPINEPHRINE 8 MG/250ML KIT 250 ML IV SCH (07:44)
[2021-07-25] MEDS: fentaNYL Drip 2500mCg/250mlNS 250 ML IV SCH (07:44)
[2021-07-25] MEDS ORDERED: TPN PER PHARMACY IV NR ×22 (20:00)
== END 2021-07-25 21:55 | DRG 720 ==
LOC: ER 09:36 → EDBD 09:36 → OVERFLOW 17:58 → ICU WEST 07-14 00:10
PROVIDERS: ADMIT Internal Medicine; ATTEND Internal Medicine
PROC: 5A09357 Assistance with Respiratory Ventilation, Less than 24 Consecutive Hours, Continuous Positive Airway Pressure (ICD-10-PCS; 2021-07-13)
PROC: 5A09357 Assistance with Respiratory Ventilation, Less than 24 Consecutive Hours, Continuous Positive Airway Pressure (ICD-10-PCS; 2021-07-14)
PROC: 5A1955Z Respiratory Ventilation, Greater than 96 Consecutive Hours (ICD-10-PCS; principal; 2021-07-15)
PROC: 0BH17EZ Insertion of Endotracheal Airway into Trachea, Via Natural or Artificial Opening (ICD-10-PCS; 2021-07-15)
PROC: 30233R1 Transfusion of Nonautologous Platelets into Peripheral Vein, Percutaneous Approach (ICD-10-PCS; 2021-07-17)
PROC: 5A09357 Assistance with Respiratory Ventilation, Less than 24 Consecutive Hours, Continuous Positive Airway Pressure (ICD-10-PCS; 2021-07-23)
PROC: 5A09357 Assistance with Respiratory Ventilation, Less than 24 Consecutive Hours, Continuous Positive Airway Pressure (ICD-10-PCS; 2021-07-24)
DX: A41.9 Sepsis, unspecified organism (principal); J96.01 Acute respiratory failure with hypoxia; J18.9 Pneumonia, unspecified organism; D61.818 Other pancytopenia; D84.9 Immunodeficiency, unspecified; C79.51 Secondary malignant neoplasm of bone; E88.09 Other disorders of plasma-protein metabolism, not elsewhere classified; J44.0 Chronic obstructive pulmonary disease with (acute) lower respiratory infection; Z66 Do not resuscitate; J90 Pleural effusion, not elsewhere classified; C14.0 Malignant neoplasm of pharynx, unspecified; C50.919 Malignant neoplasm of unspecified site of unspecified female breast; J98.11 Atelectasis; C78.00 Secondary malignant neoplasm of unspecified lung; Z20.822 Contact with and (suspected) exposure to COVID-19; F17.210 Nicotine dependence, cigarettes, uncomplicated; C78.7 Secondary malignant neoplasm of liver and intrahepatic bile duct; Z90.13 Acquired absence of bilateral breasts and nipples
CPT/HCPCS: 36415; 36600; 70450; 71045; 71275; 74018; 80053; 80061; 81001; 81025; 82010; 82565; 82607; 82728; 82746; 82805; 82962; 83036; 83540; 83550; 83615; 83735; 84100; 84439; 84443; 84478; 84484; 84702; 85007; 85014; 85018; 85025; 85027; 85045; 85379; 85610; 85730; 86850; 86900; 86901; 87040; 87070; 87081; 87086; 87205; 93005; 93970; 94003; 94640; 94660; 96365; 96375; A4618; C9113; G0378; J0131; J0330; J1447; J1815; J1956; J2185; J2248; J2704; J3480; J7060; J7131